=== PATIENT | female | born 1990 | race Caucasian/White ===

== ENCOUNTER 2021-12-17 20:38 | Emergency (ER) | payer OTHER ==
[~2021-12-17 20:38] MED LIST: COLACE 100MG C100 MG PO; IBUPROFEN600 MG PO; IBUPROFEN800 MG PO; NORCO 10-325 T1 EACH PO; NORCO 5-325 TA1 EACH PO; VISTARIL50 MG PO
== END 2021-12-17 21:33 | disposition left against medical advice (07) ==
LOC: ER1 20:38
DX: Z53.21 Procedure and treatment not carried out due to patient leaving prior to being seen by health care provider (principal)